=== PATIENT | female | born 1980 | race Caucasian/White ===

== ENCOUNTER → 2021-12-21 13:30 | Outpatient (BNVA) | payer OTHER, SELFPAY | PROVIDERS: PCP Internal Medicine; Visit Provider Psychiatry & Neurology Neurology | DX: M54.9 Dorsalgia, unspecified (principal); R20.0 Anesthesia of skin; R20.2 Paresthesia of skin | CPT/HCPCS: 99202 ==

== ENCOUNTER 2022-01-06 12:59 | Outpatient (REF) | payer OTHER, SELFPAY ==
--- NOTE | ~2022-01-06 | MR_ITS ---
MR LUMBAR SPINE WITHOUT IV CONTRAST CLINICAL INFORMATION: Dorsalgia. COMPARISON: None available. TECHNIQUE: MRI of the lumbar spine was obtained using routine sequences without contrast. FINDINGS: There are 5 nonrib-bearing lumbar-type vertebral bodies. Lumbar alignment is normal. The vertebral body heights are maintained. The disc volumes are preserved and the discs remain well-hydrated. There is no bone marrow edema. There are no acute fractures. Conus terminates at the L1 level. There are no significant extraspinal soft tissue findings. L1-L2: Slight annular disc bulge. Bilateral facet arthropathy. No central canal stenosis and no foraminal stenosis. L2-L3: Small annular disc bulge and mild to moderate bilateral facet arthropathy and ligamentum flavum thickening. No central canal stenosis and no foraminal stenosis. L3-L4: Small annular disc bulge and moderate bilateral facet arthropathy and ligamentum flavum thickening. No central canal stenosis and no foraminal stenosis L4-L5: Small annular disc bulge and moderate bilateral facet arthropathy and ligamentum flavum thickening. No central canal stenosis and no foraminal stenosis. L5-S1: Disc contour is normal. Mild bilateral facet arthropathy. No central canal stenosis and no foraminal stenosis. MR/MR lumbar spine wo con IMPRESSION: Mild to moderate lumbar spondylosis. No severe central canal stenosis and no severe foraminal stenosis within the lumbar spine.
== END 2022-01-06 13:00 | disposition home or self-care (01) ==
LOC: HO.MRI 12:59
PROVIDERS: Visit Provider Psychiatry & Neurology Neurology
DX: M54.9 Dorsalgia, unspecified (principal); R20.0 Anesthesia of skin; R20.2 Paresthesia of skin
CPT/HCPCS: 72148

== ENCOUNTER 2022-02-08 10:29 | Outpatient (REF) | payer OTHER, SELFPAY ==
--- NOTE | 2022-02-08 10:32 | EMG_ITS ---
This is a 41-year-old woman with a 9-month history of numbness and tingling in the soles of both feet and to some degree the top of the foot. There is no weakness or trouble walking. PHYSICAL EXAMINATION: She is alert and oriented with normal intellectual functions. Cranial nerves II through XII are normal. Muscle tone and strength are normal. IMPRESSION: Rule out sensory neuropathy. Nerve conduction EMG study: Normal electrodiagnostic study of both lower extremities. There is no electrodiagnostic evidence of generalized peripheral neuropathy or nerve entrapment. Normal EMG of the right L4-S1 innervated muscles. MD LIZ Bright/RAYO / [id number]
== END 2022-02-08 10:30 | disposition home or self-care (01) ==
LOC: HO.NEURO 10:29
PROVIDERS: Visit Provider Psychiatry & Neurology Neurology
DX: M54.9 Dorsalgia, unspecified (principal); R20.0 Anesthesia of skin; R20.2 Paresthesia of skin
CPT/HCPCS: 95885; 95913

== ENCOUNTER → 2022-02-15 13:50 | Outpatient (BNVA) | payer OTHER, SELFPAY | PROVIDERS: PCP Internal Medicine; Visit Provider Psychiatry & Neurology Neurology | DX: R20.0 Anesthesia of skin (principal); R20.2 Paresthesia of skin; M54.9 Dorsalgia, unspecified; M47.819 Spondylosis without myelopathy or radiculopathy, site unspecified | CPT/HCPCS: 99212 ==

== ENCOUNTER → 2022-03-20 14:09 | Outpatient (BNVA) | payer OTHER, SELFPAY | PROVIDERS: PCP Internal Medicine; Visit Provider Psychiatry & Neurology Neurology | DX: M54.9 Dorsalgia, unspecified (principal); R20.0 Anesthesia of skin; R20.2 Paresthesia of skin ==

== ENCOUNTER → 2022-04-28 12:57 | Outpatient (BNVA) | payer OTHER, SELFPAY | PROVIDERS: PCP Internal Medicine; Visit Provider Nurse Practitioner Family | DX: M54.16 Radiculopathy, lumbar region (principal); M47.816 Spondylosis without myelopathy or radiculopathy, lumbar region; M62.838 Other muscle spasm; G95.19 Other vascular myelopathies; M51.36 Other intervertebral disc degeneration, lumbar region; Z79.899 Other long term (current) drug therapy | CPT/HCPCS: 99202 ==

== ENCOUNTER → 2022-05-10 15:24 | Outpatient (BNVA) | payer OTHER, SELFPAY | PROVIDERS: PCP Internal Medicine; Visit Provider Psychiatry & Neurology Neurology | DX: R20.0 Anesthesia of skin (principal); R20.2 Paresthesia of skin; M54.9 Dorsalgia, unspecified | CPT/HCPCS: 99212 ==

== ENCOUNTER → 2022-08-16 15:32 | Outpatient (BNVA) | payer OTHER, SELFPAY | PROVIDERS: PCP Internal Medicine; Visit Provider Psychiatry & Neurology Neurology | DX: R20.0 Anesthesia of skin (principal); R20.2 Paresthesia of skin; M54.9 Dorsalgia, unspecified | CPT/HCPCS: 99212 ==

== ENCOUNTER → 2022-08-21 14:37 | Outpatient (BNVA) | payer OTHER, SELFPAY | PROVIDERS: PCP Internal Medicine; Visit Provider Nurse Practitioner Family | DX: M51.36 Other intervertebral disc degeneration, lumbar region (principal); G95.19 Other vascular myelopathies; M62.838 Other muscle spasm; M47.816 Spondylosis without myelopathy or radiculopathy, lumbar region; M54.16 Radiculopathy, lumbar region | CPT/HCPCS: 99212 ==

== ENCOUNTER → 2023-04-24 15:57 | Outpatient (BNVA) | payer OTHER, SELFPAY | PROVIDERS: PCP Internal Medicine; Visit Provider Psychiatry & Neurology Neurology | DX: R20.0 Anesthesia of skin (principal); R20.2 Paresthesia of skin; M51.36 Other intervertebral disc degeneration, lumbar region; M47.26 Other spondylosis with radiculopathy, lumbar region | CPT/HCPCS: 99212 ==

== ENCOUNTER → 2023-05-10 08:46 | Outpatient (BNVA) | payer OTHER, SELFPAY | PROVIDERS: PCP Internal Medicine; Visit Provider Nurse Practitioner Family | DX: M51.36 Other intervertebral disc degeneration, lumbar region (principal); M47.816 Spondylosis without myelopathy or radiculopathy, lumbar region; M62.838 Other muscle spasm; M54.16 Radiculopathy, lumbar region | CPT/HCPCS: 99212 ==

== ENCOUNTER 2023-05-15 14:54 | Outpatient (REF) | payer OTHER, SELFPAY ==
--- NOTE | ~2023-05-15 | US_ITS ---
EXAMINATION: Noninvasive assessment of the arteries of both lower extremities to include a single level PVR exam and ANKLE BRACHIAL INDICES (ABIs). CLINICAL INFORMATION: Peripheral vascular disease TECHNIQUE: The ankle/brachial indices of the distal posterior tibial and the dorsalis pedis arteries were obtained of the lower extremity arterial system bilaterally; along with pressures and pulse volume recordings at the ankle level. The study was performed at rest. COMPARISON: None FINDINGS: 1. ANKLE-BRACHIAL INDICES: RIGHT: 1.22 LEFT: 1.07 2. ANKLE PVR WAVEFORMS: RIGHT: Normal LEFT: Normal US/US RUBINA complete IMPRESSION: Normal noninvasive arterial evaluation
== END 2023-05-15 14:55 | disposition home or self-care (01) ==
LOC: HO.US 14:54
PROVIDERS: PCP Internal Medicine; Visit Provider Psychiatry & Neurology Neurology
DX: M79.606 Pain in leg, unspecified (principal); G95.19 Other vascular myelopathies; I73.9 Peripheral vascular disease, unspecified
CPT/HCPCS: 93923

== ENCOUNTER 2023-05-22 06:10 | Outpatient (REF) | payer OTHER, SELFPAY ==
--- NOTE | ~2023-05-22 | FL_ITS ---
EXAMINATION: XR FLUOROSCOPY WITH IMAGES CLINICAL INFORMATION: Other intervertebral disc degeneration, lumbar region. COMPARISON: None available. TECHNIQUE: Fluoroscopy Supervised By: Dr. Vargas Rascon. Fluoroscopy Time: 0.5 minutes. Cumulative Dose: 6.26 mGy. DAP: 0.108 Gycm2. Images: 6. FINDINGS: There are 6 digital images obtained with needle positioned bilaterally adjacent to S1, L5 and L4 pedicles.. Visualized bones are grossly unremarkable. FL/FL guidance in treatment room IMPRESSION: Fluoroscopy was provided to referring physician for pain management.
== END 2023-05-22 06:11 | disposition home or self-care (01) ==
LOC: CF 06:10
PROVIDERS: Visit Provider Anesthesiology
DX: M47.816 Spondylosis without myelopathy or radiculopathy, lumbar region (principal)
CPT/HCPCS: 64493; 64494; J2795

== ENCOUNTER 2023-05-22 13:00 | Outpatient (AMB) | payer SELFPAY ==
[2023-05-22 12:54] VITALS: BP 110/66; PULSE 88; RESP 18; O2SAT 99; BMI 25.8
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
[2023-05-22 13:24] VITALS: BP 118/70; PULSE 81; RESP 14; O2SAT 98; BMI 25.8
== END 2023-05-22 13:25 | disposition home or self-care (01) ==
PROVIDERS: PCP Internal Medicine; Visit Provider Anesthesiology
DX: M47.816 Spondylosis without myelopathy or radiculopathy, lumbar region (principal)
CPT/HCPCS: 64493; 64494

== ENCOUNTER 2023-06-07 14:12 | Outpatient (AMB) | payer MEDICAID, SELFPAY ==
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
[2023-06-07 14:20] VITALS: BP 136/62; PULSE 89; O2SAT 97; BMI 28.1
== END 2023-06-07 14:41 | disposition home or self-care (01) ==
PROVIDERS: PCP Internal Medicine; Visit Provider Nurse Practitioner Family
DX: M47.22 Other spondylosis with radiculopathy, cervical region (principal); M51.36 Other intervertebral disc degeneration, lumbar region
CPT/HCPCS: 99214

== ENCOUNTER → 2023-06-07 14:12 | Outpatient (BNVA) | payer OTHER, SELFPAY | PROVIDERS: PCP Internal Medicine; Visit Provider Nurse Practitioner Family | DX: M47.26 Other spondylosis with radiculopathy, lumbar region (principal); M51.36 Other intervertebral disc degeneration, lumbar region | CPT/HCPCS: 99212 ==

== ENCOUNTER 2025-06-30 10:41 | Outpatient (AMB) | payer OTHER, SELFPAY ==
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
[2025-06-30 10:45] VITALS: BP 124/71; PULSE 81; O2SAT 96; BMI 24.2
--- OUTSIDE RECORDS SUMMARY | 2025-06-30 11:32 | XMS_ITS | Clinical Summary ---
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 >=60 mL/min/1. 73m2 LAB CHEMISTRY METHOD 03/16/2025 6:[address] [facility] Comment:Calculation based on the Chronic Kidney Disease Epidemiology Collaboration (CKD-EPI) equation refit without adjustment for race. BUN/Creatinine Ratio 11.5 LAB CHEMISTRY METHOD 03/16/2025 6:[address] [facility] Calcium 10.6(H) 8.5 - 10.5 mg/dL LAB CHEMISTRY METHOD 03/16/2025 6:[address] [facility] Blood Venous blood specimen / Unknown Venipuncture / Unknown 03/16/2025 2:03 PM EDT 03/16/2025 2:03 PM EDT Shelly Denise NP LAB BLOOD ORDERABLES Final Resu lt [facility] [address] [place] [address], [place] [phone] * Hemoglobin A1c (03/06/2025 3:00 PM EDT) Hemoglobin A1C 6.3 <6.5 % LAB CHEMISTRY METHOD 03/06/2025 10:20 PM EDT [facility] Mean Bld Glu Estim. 134 mg/dL LAB CHEMISTRY METHOD 03/06/2025 10:20 PM EDT [facility] Blood Venous blood specimen / Unknown Venipuncture / Unknown 03/06/2025 3:00 PM EDT 03/06/2025 3:01 PM EDT Jo Ann DONIS LAB BLOOD ORDERABLES Final Resul t Performing Organization Address [facility] Co de Phone Number [facility] [address] [place] [address], [place] [phone] * (ABNORMAL) Lipid panel with reflex to direct LDL (10/01/2024 10:23 AM EST) Pathologist [facility] Cholesterol 234(H) 0 - 200 mg/dL LAB CHEMISTRY METHOD 10/01/2024 5:48 PM EST [facility] Triglycerides 385(H) 0 - 150 mg/dL LAB CHEMISTRY METHOD 10/01/2024 5:48 PM EST [facility] HDL 44 >=40 mg/dL LAB CHEMISTRY METHOD 10/01/2024 5:48 PM EST [facility] LDL Calculated 113(H) 0 - 100 mg/dL LAB CHEMISTRY METHOD 10/01/2024 5:48 PM EST [facility] VLDL Cholesterol Oral 77 mg/dL LAB CHEMISTRY METHOD 10/01/2024 5:48 PM [facility] Non HDL Chol. (LDL+VLDL) 190(H) <145 mg/dL LAB CHEMISTRY METHOD 10/01/2024 5:48 PM EST [facility] Chol/HDL Ratio 5.3(H) 0.0 - 4.4 LAB CHEMISTRY METHOD 10/01/2024 5:48 PM EST [facility] Blood Venous blood specimen / Unknown Venipuncture / Unknown 10/01/2024 10:23 AM EST 10/01/2024 10:23 AM EST Soumya DONIS LAB BLOOD ORDERABLES Final Resul t [facility] [address] [place] [address], * Urine Albumin Creatinine Ratio (04/08/2024) [facility] Urine Albumin Creatinine Ratio ABSTRACTED Result [facility] Provider HEALTH MAINTENANCE Final Result * Cervical Cancer Screening: HPV (04/08/2024) [facility] Cervical Cancer Screening: HPV NEGATIVE, ABSTRACTED Result [facility] Provider HEALTH MAINTENANCE Final Result * HIV Screening (01/10/2024) [facility] HIV Screening ABSTRACTED Result [facility] Provider MD HEALTH MAINTENANCE Final Result * Hepatitis C Screening (01/10/2024) [facility] Hepatitis C Screening ABSTRACTED Result [facility] Provider HEALTH MAINTENANCE Final Result * Diabetes Eye Exam (12/13/2023) [facility] Diabetes: Annual Retina Eye Exam ABSTRACTED Result [facility] Historical Provider HEALTH MAINTENANCE Final Result from Last 3 Months or Most Recently Relevant to Health Maintenance Insurance MEDICAID ADVANTAGE GENERIC 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
--- OUTSIDE RECORDS SUMMARY | 2025-06-30 11:32 | XMS_ITS ---
Author Name [facility] ([place], [place]) Organization Unknown Care Team Organization Name Specialty Phone Email Start Date End Da te [facility] BAILEY GRIJALVA Primary Care [email or web address]/12/2023 4 [facility] Mounika Cohen Primary Care 2022 4
--- OUTSIDE RECORDS SUMMARY | 2025-06-30 11:32 | XMS_ITS | Clinical Summary ---
Author Organization 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 Not on parag e 01/22/2025 Are you concerned about learning? Not on file 01/22/2025 No 01/22/2025 No 01/22/2025 Digital Access Answer Date Recorded No 01/22/2025 No 01/22/2025 Reliable internet access at home? Not on file 01/22/2025 Device with a working camera? Not on file Comments Unknown Sex and Gender Information Value Date Recorded Sex Assigned at Not on file Legal Sex Female 11:40 AM EDT Gender Identity Not on file Sexual Orientation Not on file Plan of Treatment Health Maintenance Due Date Last Done Comments Adult Td,Tdap Booster 1981 DEPRESSION SCREENING 1993 SMOKING Hx and SMOKELESS TOB ACCO SCREENING 1994 HEPATITIS C SCREENING 1999 HIV ONE-TIME SCREENING (18-6 5 YEARS) 1999 PAP SMEAR 2002 MAMMOGRAM 2021 COVID-19 VACCINE (2023-2 5 season) 2024 HEPATITIS A VACCINES Aged Out No long er eligible based on patient's age to complete this topic HIB VACCINES Aged Out No longer eligi ble based on patient's age to complete this topic MENINGOCOCCAL VACCINES (ACWY) Aged Out No longer eligible based on patient's age to complete this topic MENINGOCOCCAL VACCINES (B) Aged Out N o longer eligible based on patient's age to complete this topic PNEUMOCOCCAL VACCINES (0-49 years) Aged Out No longer eligible based on patient's age to complete this topic Medical Devices Not on file Insurance WE[employer]SENSE NON NSPG PCP [employer] WELLS[employer] NON NSPG PCP [employer] NON NSPG PCP S[employer] WE[employer] NON NSPG PCP [employer] Member Subscriber Plan / Payer (Ef fective 2024-Present) Name:Deborah Avila Relation to Subscriber:Self Name:Deborah Avila Payer ID:[id number] Type:O Address: [place] [id number] WE[employer]SENSE NON NSPG PCP [employer] WELLSENSE NON NSPG PCP [employer] Care Teams Dowel Sander Operator Relationship Specialty Start Date End Date Mounika Cohen MD [address] [place] [address] PCP - General Internal Medicine 01/16/25 Additional Source Comments The information contained in this document represents components of the legal health record. It is not the complete legal health record.[facility]
== END 2025-06-30 11:21 | disposition home or self-care (01) ==
LOC: HO.PMC 10:42
PROVIDERS: PCP Internal Medicine; Visit Provider Nurse Practitioner Family
DX: G62.9 Polyneuropathy, unspecified (principal); M47.816 Spondylosis without myelopathy or radiculopathy, lumbar region; G89.4 Chronic pain syndrome; E11.49 Type 2 diabetes mellitus with other diabetic neurological complication
CPT/HCPCS: 99214

== ENCOUNTER → 2025-06-30 10:41 | Outpatient (BNVA) | payer OTHER, SELFPAY | PROVIDERS: PCP Internal Medicine; Visit Provider Nurse Practitioner Family | DX: M47.816 Spondylosis without myelopathy or radiculopathy, lumbar region (principal); G62.9 Polyneuropathy, unspecified; E11.49 Type 2 diabetes mellitus with other diabetic neurological complication; G89.4 Chronic pain syndrome | CPT/HCPCS: 99212 ==

== ENCOUNTER 2025-09-01 08:54 | Outpatient (AMB) | payer OTHER, SELFPAY ==
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
[2025-09-01 09:03] VITALS: BP 144/70; PULSE 76; O2SAT 98; BMI 25.1
[2025-09-01 09:30] VITALS: BP 128/62; PULSE 72
--- OUTSIDE RECORDS SUMMARY | 2025-09-01 09:45 | XMS_ITS | Clinical Summary ---
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 It is not the complete legal health record.[facility]
--- OUTSIDE RECORDS SUMMARY | 2025-09-01 09:45 | XMS_ITS | Clinical Summary ---
Author Organization [facility] [address] [place] [address] [place] [phone] Phone Care Team Providers Care Conventions Assistant Name Role Phone Mounika Cohen MD Primary Care Provider [phone] Allergies Active Allergy Reactions Criticality Noted Date Comments Gabapentin Hives 05/19/2022 Medications pen needle, diabetic 31 gauge x 5/16 needle Use once daily with insulin pen 04/15/20 24 Active FREESTYLE LANCETS MISC E11.9 Check sugars twice daily 01/11/20 23 Active Ventolin HFA 90 mcg/actuation inhaler 10/17/20 24 Active blood sugar diagnostic (FreeStyle Lite Strips) [...] at bedtime. 30 tablet 05/26/20 25 Active lidocaine (LIDODERM) 5 % patch Apply 1 patch topically 1 (one) time each day. Remove & discard patch within 12 hours or as directed by . 30 each 2 06/10/20 25 025 Active atorvastatin (LIPITOR) 40 mg tablet TAKE 1 TABLET BY MOUTH EVERYDAY AT BEDTIME 90 tablet 1 06/26/20 Active Lantus Solostar U-100 Insulin 100 unit/mL (3 mL) injection penIndications:Ty pe 2 diabetes mellitus without complications ([facility] V24, [facility] V28) INJECT 6 TO 14 UNITS INTO THE SKIN ONCE AT BEDTIME. 15 mL 2 08/12/20 25 Active lisinopriL (PRINIVIL,ZESTRIL ) 10 mg tablet Take 1 tablet (10 mg total) by mouth at bedtime. 90 tablet 08/31/20 25 Active insulin glargine (LANTUS) 100 unit/mL injection Inject under the skin at bedtime. 025 Discontinued lisinopriL (PRINIVIL,ZESTRIL ) 10 mg tablet Take 1 tablet (10 mg total) by mouth at bedtime. 90 each 06/04/20 25 025 Discontinued Active Problems Problem Noted Date Diagnosed Date Microalbuminuria 07/22/2025 Type 2 diabetes mellitus wit h diabetic microalbuminuria, with long-term current use of insulin ([facility] V24, [facility] V28) 07/22/2025 Elevated LFTs 10/14/2024 SVT (supraventricular tachycardia) ([facility] V24) 10/01/2024 Adnexal cyst 10/01/2024 Uterine leiomyoma 10/01/2024 Fatty liver 10/01/2024 Adjustment disorder with anxiety 09/16/2024 Alcohol abuse 09/16/2024 Overview (07/09/2025): 2 drinks every other week as of 07/09/25 Diabetic neuropathy ([facility] V24, [facility] V28) 1 11/16/2023 Hyperlipidemia LDL goal <70 09/16/2024 Pancreatic lesion 09/16/2024 Overview (09/16/2024): Noted on MRI from July 15, 2021 Obstructive sleep apnea 01/22/2023 Overview (07/09/2025): UNTREATED (07/09/25) Diabetes mellitus type 2 wit h neurological manifestations ([facility] V24, [facility] V28) 12/21/2022 Acute thrombosis of [...] Encounters Date Type Department Care Team Description 07/09/2025 8:30 AM EDT Office Visit Adult Medicine [address] [phone] Phuong Izaguirre PA Essential hypertension (Primary Dx); Pneumococcal vaccination declined; Obstructive sleep apnea; SVT (supraventricular tachycardia) (CMS/HCC V24); Hyperlipidemia LDL goal <70; Gastroesophageal reflux disease without esophagitis; Diabetes mellitus type 2 with neurological manifestations (CMS/HCC V24, CMS/HCC V28); Alcohol abuse 06/10/2025 2:30 PM EDT Office Visit Orthopedic Surgery [address] [phone] Efren Barfield, DPM Diabetic mononeuropathy simplex (CMS/HCC V24, CMS/HCC V28) (Primary Dx); Alcoholic peripheral neuropathy (CMS/HCC V24); Diabetic polyneuropathy associated with type 2 diabetes mellitus (CMS/HCC V24, CMS/HCC V28) 06/04/2025 8:00 AM EDT Office Visit [address] [phone] Phuong Izaguirre PA Essential hypertension (Primary Dx); Encounter for screening mammogram for malignant neoplasm of breast from Last 3 Months Immunizations Immunization Administration Dates Next Due HPV, Quadrivalent 07/11/2007 [...] mellitus type 2 wit h neurological manifestations ([facility] V24, [facility] V28) 12/21/2022 Neuropathy Family History [...] you may not have stable housing? No 07/09/2025 Food Access & Nutrition Answer Date Rec orded Do you have access to a vari ety of food including fruits and vegetables? Yes 07/09/2025 Access to Healthcare Answer Date Record ed Within the last 3 months, ho w many times did you visit the emergency department for your medical care? 0 07/09/2025 Health Literacy Answer Date Recorded How often do you need to hav e someone help you when you read instructions, pamphlets, or other written material from your doctor or pharmacy? Never 07/09/2025 Caregiver: How often do you need to have someone help you when you read instructions, pamphlets, or other written material from your doctor or pharmacy? Not on file 07/09/2025 Financial Risk Answer Date Recorded How hard is it for you to pa y for the very basics like food, housing, medical care, and air conditioning / heating? Not very hard 07/09/2025 Transportation Answer Date Recorded Has the lack of transportati on kept you from meetings, work, or from getting things needed for daily living? No Has the lack of transportati on kept you from medical appointments or from getting medications? No 07/09/2025 Social Isolation Answer Date Recorded How often do you feel lonely or isolated from th ose around you? Often 07/09/2025 Food Risk Answer Date Recorded Within the past 12 months we worried whether our food would run out before we got money to buy more. Never true 07/09/2025 Within the past 12 months th e food we bought just didn't last and we didn't have money to get more. Never true 07/09/2025 Dependent Care Answer Date Recorded Do you need help finding or paying for care for your loved ones. For example, child nurse or elderly care for an older adult? No 07/09/2025 Education Answer Date Recorded Do you think completing more education or training, like finishing a GED, going to college, or learning a trade, would be helpful for you? Yes 07/09/2025 Employment and Income Answer Date Recor ded During the last four weeks, have you been actively looking for work? No 07/09/2025 Living Situation Answer Date Recorded What is your living situation? 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 file Not on file Not on file Obstetrics History Last Filed Vital Signs Vital Sign Reading Time Taken Comments Blood Pressure 112/74 07/09/2025 8:22 AM EDT Pulse 82 07/09/2025 8:22 AM EDT Temperature 36.3 C (97.4 F) 07/09/2025 8:22 AM EDT Respiratory Rate 16 07/09/2025 8:22 AM EDT Oxygen Saturation 98% 07/09/2025 8:22 AM EDT Inhaled Oxygen Concentration - - Weight 71.7 kg (158 lb) 07/09/2025 8:22 AM EDT Height 167.6 cm (5' 6 ) 07/09/2025 8:22 AM EDT Body Mass Index 25.5 07/09/2025 8:22 AM EDT Plan of Treatment Upcoming Encounters Date Type Department Care Team (Late st Contact Info) Description 09/08/2025 9:20 AM EST Office Visit [facility] [address] [place] [phone] Binh Pedroza MD [address] [place] [address] [address] [place] [phone] 10/08/2025 4:00 PM EST Office Visit Endocrinology [address] [phone] Jo Ann King PA [address] [place] [address] 01/07/2026 8:00 AM EST Office Visit [facility] [address] [phone] Soumya Domingo PA [address] [place] [address] Health Maintenance Due Date Last Done Comments Breast Cancer Screening 1981 Hepatitis A Vaccines (1 of 2 - Risk 2-dose series) 2000 Hepatitis B Vaccines (1 of 3 - 19+ 3-dose series) 2000 Pneumococcal Vaccine: Pediatrics (0 to 5 Years) and At-Risk Patients (6 to 49 Years) (1 of 2 - PCV) 2000 HPV Vaccines (2 - 3-dose series) 08/08/2007 07/11/2007 Diabetes: Annual Retina Eye Exam 12/13/2024 12/13/2023 COVID-19 Vaccine ( season) 2025 Influenza Vaccine (#1) 2025 Diabetes: Blood Sugar Control Test (HGBA1C) 01/06/2026 07/09/2025, 03/06/2025, 01/09/2025, Additional history exists Diabetes: Annual Foot Exam 06/10/2026 06/10/2025 Diabetes: Annual Urine Albumin-Creatinine Ratio (uACR) 07/09/2026 07/09/2025, 04/08/2024 Diabetes: Annual GFR (Glomerular Filtration Rate) 07/09/2026 07/09/2025, 03/16/2025, 01/09/2025, Additional history exists Hypertension/CHF/CAD Annual BMP Blood Test 07/09/2026 07/09/2025, 03/16/2025, 01/09/2025, Additional history exists Social Influencers of Health Screening 07/09/2026 07/09/2025 Cervical Cancer Screening: HPV 04/08/2029 04/08/2024 Cholesterol Screening (Lipid Panel) 07/09/2030 07/09/2025, 10/01/2024, 04/08/2024, Additional history exists DTaP,Tdap,and Td Vaccines (5 - Td or Tdap) 06/14/2031 06/14/2021, 05/22/2011, 01/29/2010, Additional history exists RSV Immunization Adult Patients (1 - 1-dose 75+ series) 2056 HIV Screening Completed 01/10/2024 Hepatitis C Screening Completed 01/10/2024 Depression Screening Completed 07/09/2025 HIB Vaccines Aged Out No longer eligi [...] Procedure Name Priority Date/Time Associated Diagnosis Comments HEMOGLOBIN A1C Routine 07/09/2025 7:58 AM EDT Diabetes mellitus type 2 with neurological manifestations ([facility] V24, [facility] V28) LIPID PANEL WITH REFLEX TO DIRECT LDL Routine 07/09/2025 7:58 AM EDT Mixed hyperlipidemia MICROALBUMIN CREATININE URINE RATIO Routine 07/09/2025 7:58 AM EDT Diabetic polyneuropathy associated with type 2 diabetes mellitus ([facility] V24, [facility] V28) BASIC METABOLIC PANEL Routine 07/09/2025 7:58 AM EDT Essential hypertension HM HPV Routine 04/08/2024 HEPATITIS C SCREENING Routine 01/10/2024 HIV SCREENING Routine 01/10/2024 DIABETES EYE EXAM Routine 12/13/2023 from Last 3 Months or Most Recently Relevant to Health Maintenance Results * (ABNORMAL) Lipid panel with reflex to direct LDL (07/09/2025 7:58 AM EDT) [facility] Cholesterol 147 0 - 200 mg/dL LAB CHEMISTRY METHOD 07/09/2025 10:[address] [facility] Triglycerides 216(H) 0 - 150 mg/dL LAB CHEMISTRY METHOD 07/09/2025 10:[address] [facility] HDL 21(L) >=40 mg/dL LAB CHEMISTRY METHOD 07/09/2025 10:[address] [facility] LDL Calculated 83 0 - 100 mg/dL LAB CHEMISTRY METHOD 07/09/2025 10:[address] [facility] Comment:Estimated LDL Calcul ated using equation: Total cholesterol - HDL cholesterol - (Triglycerides/5) VLDL Cholesterol Oral 43.2 mg/dL LAB CHEMISTRY METHOD 07/09/2025 10:[address] [facility] Non HDL Chol. (LDL+VLDL) 126 <145 mg/dL LAB CHEMISTRY METHOD 07/09/2025 10:[address] [facility] Chol/HDL Ratio 7.0(H) 0.0 - 4.4 LAB CHEMISTRY METHOD 07/09/2025 10:[address] [facility] Blood Venous blood specimen / Unknown Venipuncture / Unknown 07/09/2025 7:58 AM EDT 07/09/2025 7:58 AM EDT us Phuong DONIS LAB BLOOD ORDERABLES Final Re sult [facility] [address] [place] [address], * (ABNORMAL) Microalbumin creatinine urine ratio (07/09/2025 7:58 AM EDT) Creatinine, Urine 291.0 mg/dL LAB CHEMISTRY METHOD 07/09/2025 10:[address] [facility] Microalb, Ur 35.0(H) 0.0 - 29.0 mg/L LAB CHEMISTRY METHOD 07/09/2025 10:[address] [facility] Microalb/Crea t Ratio 12 <30 mg/g creat LAB CHEMISTRY METHOD 07/09/2025 10:[address] [facility] Urine Urine specimen from urethra / Unknown Non-blood Collection / Unknown 07/09/2025 7:58 AM EDT 07/09/2025 7:58 AM EDT Phuong DONIS LAB URINE ORDERABLES Final Re sult Performing Organization Address [facility]/ZIP Az de Phone Number [facility] [address] [place] [address], [place] [phone] * (ABNORMAL) Hemoglobin A1c (07/09/2025 7:58 AM EDT) Hemoglobin A1C 7.4(H) <6.5 % LAB CHEMISTRY METHOD 07/09/2025 11:[address] [facility] Mean Bld Glu Estim. 166 mg/dL LAB CHEMISTRY METHOD 07/09/2025 11:[address] [facility] Blood Venous blood specimen / Unknown Venipuncture / Unknown 07/09/2025 7:58 AM EDT 07/09/2025 7:58 AM EDT Jo Ann DONIS LAB BLOOD ORDERABLES Final Resul t Performing Organization Address [facility] de Phone Number [facility] [address] [place] [address], * (ABNORMAL) Basic metabolic panel (07/09/2025 7:58 AM EDT) Sodium 134 133 - 145 mmol/L LAB CHEMISTRY METHOD 07/09/2025 10:[address] [facility] Potassium 4.1 3.5 - 5.5 mmol/L LAB CHEMISTRY METHOD 07/09/2025 10:[address] [facility] Chloride 100 96 - 110 mmol/L LAB CHEMISTRY METHOD 07/09/2025 10:[address] [facility] CO2 30 21 - 32 mmol/L LAB CHEMISTRY METHOD 07/09/2025 10:44 AM [facility] Anion Gap 4 3 - 11 LAB CHEMISTRY METHOD 07/09/2025 10:44 AM [facility] Glucose 146(H) 70 - 100 mg/dL LAB CHEMISTRY METHOD 07/09/2025 10:44 AM [facility] BUN 8 5 - 25 mg/dL LAB CHEMISTRY METHOD 07/09/2025 10:44 AM [facility] Creatinine 0.64 0.50 - 1.10 mg/dL LAB CHEMISTRY METHOD 07/09/2025 10:44 AM [facility] eGFR 113 >=60 mL/min/1. 73m2 LAB CHEMISTRY METHOD 07/09/2025 10:44 AM [facility] Comment:Calculation based on the Chronic Kidney Disease Epidemiology Collaboration (CKD-EPI) equation refit without adjustment for race. BUN/Creatinine Ratio 12.5 LAB CHEMISTRY METHOD 07/09/2025 10:44 AM [facility] Calcium 9.1 8.5 - 10.5 mg/dL LAB CHEMISTRY METHOD 07/09/2025 10:44 AM [facility] Blood Venous blood specimen / Unknown Venipuncture / Unknown 07/09/2025 7:58 AM EDT 07/09/2025 7:58 AM EDT Phuong DONIS LAB BLOOD ORDERABLES Final Re sult [facility] [address] [place] [address], * Cervical Cancer Screening: HPV (04/08/2024) [facility] Cervical Cancer Screening: HPV NEGATIVE, ABSTRACTED us Historical Provider HEALTH MAINTENANCE Final Result * HIV Screening (01/10/2024) [facility] HIV Screening ABSTRACTED Historical Provider HEALTH MAINTENANCE Final Result * Hepatitis C Screening (01/10/2024) Pathologist [facility] Hepatitis C Screening ABSTRACTED Historical Provider HEALTH MAINTENANCE Final Result * Diabetes Eye Exam (12/13/2023) Pathologist [facility] Diabetes: Annual Retina Eye Exam ABSTRACTED Result [facility] Historical Provider HEALTH MAINTENANCE Final Result from Last 3 Months or Most Recently Relevant to Health Maintenance Insurance [facility] [employer] Care Teams Conventions Assistant Relationship Specialty Start Date End Date Mounika Cohen MD [address] [place] [phone] PCP - General Internal Medicine 07/03/19
[2025-09-01 09:49] VITALS: BP 128/71
== END 2025-09-01 09:51 | disposition home or self-care (01) ==
LOC: HO.PMC 08:54
PROVIDERS: PCP Internal Medicine; Visit Provider Nurse Practitioner Family
DX: G62.9 Polyneuropathy, unspecified (principal); G89.4 Chronic pain syndrome
CPT/HCPCS: 17999; 99214

== ENCOUNTER → 2025-09-01 08:54 | Outpatient (BNVA) | payer OTHER, SELFPAY | PROVIDERS: PCP Internal Medicine; Visit Provider Nurse Practitioner Family | DX: G62.9 Polyneuropathy, unspecified (principal); G89.4 Chronic pain syndrome; E11.41 Type 2 diabetes mellitus with diabetic mononeuropathy; Z72.89 Other problems related to lifestyle | CPT/HCPCS: 17999; 99212; J7336 ==

== ENCOUNTER 2025-10-28 08:29 | Outpatient (AMB) | payer OTHER, SELFPAY ==
--- OUTSIDE RECORDS SUMMARY | 2025-10-28 08:31 | XMS_ITS | Clinical Summary ---
Author Organization [facility] Address [address] [place] [address] [place] [phone] Phone Care Team Providers Care Flight Operations Manager Name Role Phone Mounika Cohen MD Primary Care Provider [phone] Social History Tobacco Use Types Packs/Day Years [...] [facility] Care Teams Flight Operations Manager Relationship Specialty Start Date End Date Mounika Cohen MD [address] [place] [phone] PCP - General Internal Medicine 01/16/25 Additional Source Comments The information contained in this document represents components of the legal health record. It is not the complete legal health record.[facility]
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
== END 2025-10-28 08:54 | disposition home or self-care (01) ==
LOC: HO.HSM 08:29
PROVIDERS: PCP Internal Medicine; Visit Provider Registered Nurse
DX: G62.9 Polyneuropathy, unspecified (principal); G60.8 Other hereditary and idiopathic neuropathies
CPT/HCPCS: 99214

== ENCOUNTER → 2025-10-28 08:29 | Outpatient (BNVA) | payer OTHER, SELFPAY | PROVIDERS: PCP Internal Medicine; Visit Provider Registered Nurse | DX: G62.9 Polyneuropathy, unspecified (principal); G60.8 Other hereditary and idiopathic neuropathies | CPT/HCPCS: 99212 ==